=== PATIENT | female | born 1990 | race Caucasian/White ===

== ENCOUNTER 2017-07-12 15:50 | Emergency (ER) | payer SELFPAY ==
[2017-07-12 16:04] VITALS: BP 116/90
--- NOTE | 2017-07-12 17:21 | UC ---
Luis Fernando Sloan Natalie, scribed for Roberto Finn MD on 07/12/17 at 1616 . Respiratory Complaint HPI - HPI Summary HPI Summary: The pt is a 27 y/o F presenting to [facility] c/o respiratory symptoms for a few days. She has right ear ache, cough, wheezing when lying down, and cramping in low abd. The pain is rated 3/10. The pt is in her first , and she will be 26 weeks on 07/14/17. She states that she hasnt felt the baby move since the night of 07/10/17; she usually feels more movement at night rather than in the morning, but hasnt felt anything in over 24 hours. Pt denies vaginal discharge. Her SET O TYPE OPERATOR is Dr. Spaulding, who recommended she come to to check the heartbeat of the baby. She has an appointment tomorrow. She was exposed to people with influenza. - History of Current Complaint Stated Complaint: FLU-SYMPTOMS,25 WEEKS PREG Time Seen by Provider: 07/12/17 15:54 Hx Obtained From: Patient Hx Last Menstrual Period: murena iud - does not cycle ?: Yes - 26 weeks on 07/14/17 Onset/Duration: Lasting Days, Still Present Severity Initially: Mild Severity Currently: Mild Pain Intensity: 3 Pain Scale Used: 0-10 Numeric Character: Cough: Nonproductive Aggravating Factors: Other - lying down Alleviating Factors: Nothing Associated Signs And Symptoms: Positive: Wheezing, Nasal Congestion - Allergies/Home Medications Allergies/Adverse Reactions: Allergies Allergy/AdvReac Type Severity Reaction Status Date / Time MS Amoxicillin [Amoxicillin] Allergy Severe Difficulty Verified 08/25/15 18:49 Breathing MS Cefuroxime [From Ceftin] Allergy Severe Difficulty Verified 08/25/15 18:49 Breathing MS Clavulanic Acid Allergy Severe Difficulty Verified 08/25/15 18:49 [From Augmentin] Breathing MS Penicillins [Penicillins] Allergy Severe Difficulty Verified 08/25/15 18:49 Breathing MS Lorazepam [From Ativan] Allergy Palpitation Verified 08/25/15 18:49 s ENVIRONMENTAL Allergy SNEEZING, Uncoded 08/25/15 18:49 ITCHY EYES Home Medications: Home Medications Ascorbic Acid TAB* [Vitamin C TAB*] 500 mg PO DAILY 07/12/17 [History Confirmed 07/12/17] GuaiFENesin DM* [Robitussin DM*] 5 ml PO Q6H PRN 07/12/17 [History Confirmed 11/22] Metoclopramide TAB* [Reglan TAB*] 10 mg PO Q6H PRN 07/12/17 [History Confirmed 07/12/17] Pnv No.95/Ferrous Fum/Folic AC [ Vitamin & Minera 28-0.8 mg] 1 tab PO [History] Pseudoephedrine HCl [Sudafed 12 Hour] 120 mg PO BID PRN 07/12/17 [History Confirmed 07/12/17] Sertraline* [Zoloft*] 100 mg PO DAILY 07/12/17 [History Confirmed 07/12/17] PMH/Surg Hx/FS Hx/Imm Hx - Surgical History Surgical History: Yes Surgery Procedure, Year, and Place: Tonsillectomy as a child. 2012 LOWER WISDOM TEETH EXTRACTION, OFFICE. cholecystectomy 07/2013 - Family History Known Family History: Negative: Cardiac Disease, Hypertension Family History: Mother: MS. Grandmother: DVT - Social History Alcohol Use: None Substance Use Type: None Substance Use Comment - Amount & Last Used: daily Smoking Status (MU): Former Smoker Type: Cigarettes Amount Used/How Often: 1-1.5 PPD Length of Time of Smoking/Using Tobacco: 4 YEARS Have You Smoked in the Last Year: No When Did the Patient Quit Smoking/Using Tobacco: 2010 Household Exposure Type: Cigarettes Review of Systems Constitutional: Other - decrease in baby movement ENT: Ear Ache - right Respiratory: Cough Gastrointestinal: Abdominal Pain Genitourinary: Other - NEGATIVE: vaginal discharge All Other Systems Reviewed And Are Negative: Yes Physical Exam - Summary Physical Exam Summary: General: mildly ill-appearing, no pain distress Skin: warm, color reflects adequate perfusion, dry Head: normal Eyes: EOMI, SPENSER ENT: normal Neck: supple, nontender Respiratory: CTA, breath sounds present, cough Cardiovascular: RRR Abdomen: soft, nontender Bowel: present Musculoskeletal: normal, strength/ROM intact Neurological: normal, sensory/motor intact, A&O x3 Psychological: affect/mood appropriate Triage Information Reviewed: Yes Vital Signs: Initial Vital Signs Temp 97.0 F 07/12/17 15:54 Pulse 104 07/12/17 15:54 Resp 20 03/07/18 15:54 BP 116/90 07/12/17 15:54 Pulse Ox 99 07/12/17 15:54 Vital Signs Reviewed: Yes UC Diagnostic Evaluation - Laboratory O2 Sat by Pulse Oximetry: 99 Respiratory Course/Dx - Course Course Of Treatment: Medications reviewed. Allergies noted. UNABLE TO FIND HEART TONES IN CLINIC. DUE TO FLU-LIKE ILLNESS AND EXPOSURE TO PERSONS WITH INFLUENZA IN , WILL TREAT WITH TAMIFLU. DISCUSSED WITH DR DANNY PICHARDO OBGYN. SHE RECOMMENDED THE PATIENT GO TO L & D TO EVALUATE FOR HEART TONES. - Differential Dx/Diagnosis Provider Diagnoses: FLU LIKE SYMPTOMS IN . EXPOSURE TO PERSONS WITH INFLUENZA Discharge - Discharge Plan Condition: Stable Disposition: HOME Prescriptions: Oseltamivir CAP* [Tamiflu CAP*] 75 mg PO BID #10 cap Referrals: Elisa Dow MD [Primary Care Provider] - Additional Instructions: GO DIRECTLY TO LABOR AND DELIVERY FOR FURTHER EVALUATION. FOLLOW UP WITH YOUR OBGYN. TAKE THE TAMIFLU FOR YOUR FLU-LIKE ILLNESS AND EXPOSURE TO PEOPLE WITH INFLUENZA. GO TO THE EMERGENCY DEPARTMENT FOR ANY WORSENING OF YOUR CONDITION OR QUESTIONS OR CONCERNS. YOUR BLOOD PRESSURE WAS ELEVATED TODAY; FOLLOW UP WITH YOUR PRIMARY CARE DOCTOR WITHIN ONE WEEK. The documentation as recorded by the Luis Fernando jones Natalie accurately reflects the service I personally performed and the decisions made by me, Roberto Finn MD.
== END 2017-07-12 17:19 | disposition home or self-care (01) ==
LOC: UCEAST 15:50
DX: O26.892 Other specified pregnancy related conditions, second trimester (principal); J11.1 Influenza due to unidentified influenza virus with other respiratory manifestations; Z3A.26 26 weeks gestation of pregnancy; Z20.828 Contact with and (suspected) exposure to other viral communicable diseases; Z88.1 Allergy status to other antibiotic agents; Z88.0 Allergy status to penicillin; Z88.8 Allergy status to other drugs, medicaments and biological substances; Z87.891 Personal history of nicotine dependence
CPT/HCPCS: 87502; 99212; G0463

== ENCOUNTER 2018-02-13 06:30 | Day surgery (SDC) | payer OTHER ==
--- NOTE | 2018-01-30 07:36 | HP ---
PREOPERATIVE HISTORY AND PHYSICAL: DATE OF ADMISSION/SURGERY: 02/13/18 DATE OF OFFICE VISIT/ENCOUNTER: 01/29/18 ATTENDING SURGEON: Demi Castellano MD * (DICTATED BY HILLARY CANO) PROCEDURE: Right wrist carpal tunnel release. CHIEF COMPLAINT: Numbness and tingling, right hand. HISTORY OF PRESENT ILLNESS: This is a 27-year-old female, who complains of numbness and tingling in her right hand that has been present for 7 months and it is gradually getting worse. She had it during her and it was very bad, and it just never went away after she delivered the baby. She has used braces for treatment, but no other treatment. This is her dominant hand. She denies any injury to this hand. She is interested in pursuing surgical intervention at this time in the form of a right wrist carpal tunnel release. PAST MEDICAL HISTORY: 1. Arthritis. 2. Tourette's syndrome, which causes her to cough. 3. Gastroparesis. 4. Anxiety/depression. PAST SURGICAL HISTORY: 1. followed by healing complications, well-healed now. 2. Cholecystectomy. 3. Tonsillectomy. No known anesthesia problems with surgeries. CURRENT MEDICATIONS: 1. Ibuprofen 200 mg p.r.n. 2. Lansoprazole 15 mg daily. 3. Zoloft 150 mg daily. ALLERGIES: AMOXICILLIN, AUGMENTIN, and PENICILLIN cause hives and throat swelling. FAMILY MEDICAL HISTORY: Diabetes, hypertension, stroke, and cancer. SOCIAL HISTORY: The patient is employed at [employer]. She quit smoking approximately 10 years ago, prior to that she smoked a pack per day for 5 years. She denies recreational drug use and does not drink alcohol. REVIEW OF SYSTEMS: Negative for general, cephalic, cardiovascular, respiratory , GI, , other musculoskeletal, integumentary, endocrine, neurologic, and hematologic symptoms. Infectious disease is negative for MRSA, hepatitis C, and HIV. PHYSICAL EXAMINATION GENERAL: A well-developed, well-nourished, 27-year-old female, in no acute distress. VITAL SIGNS: Height 5 feet 3 inches, weight 335 pounds, pulse rate 64, blood pressure 140/72. HEENT: Normocephalic, atraumatic. Pupils are equal, round, and reactive to light and accommodation. Extraocular movements are intact. Throat is clear. NECK: Supple. No palpable lymph nodes. PULMONARY: Lungs are clear to auscultation bilaterally. No wheezes, rales, or rhonchi. CARDIOVASCULAR: Regular rate and rhythm. S1 and S2. No murmurs, rubs or gallops. No edema. ABDOMEN: Positive bowel sounds. Soft, nontender. MUSCULOSKELETAL: On exam of the right hand, there is no thenar wasting, but she does have weakness with thumb abduction. There is no visible swelling. She has normal sensation to light touch in the median nerve distribution. She has full flexion and extension of the fingers. Positive median nerve compression test, negative Tinel's sign at the ulnar nerve at the elbow, negative Phalen's test. NEUROLOGICAL: Alert and oriented x3. Cranial nerves II through XII are intact. IMPRESSION: Right carpal tunnel syndrome. PLAN: The patient is scheduled to undergo a right wrist carpal tunnel release with Dr. Castellano on 02/13/18. She will follow up 10 days postop for followup and suture removal. A prescription for Tylenol No. 3 was e-scribed to the patient' s pharmacy for postoperative pain management. HILLARY CANO [id number]/SANDRINE #: [id number] CARLY
[~2018-02-13 06:30] MED LIST: Buffered Lidocaine 0.9% SYRIN* 5 ML/SYR SYRINGE INTRADERM ONE; Famotidine IV* 10 MG/ML 2 ML (20 mg) IV ONE
[2018-02-13] MEDS ORDERED: Famotidine IV* 10 MG/ML 2 ML (20 mg) ONE (06:41)
[2018-02-13] MEDS ORDERED: Buffered Lidocaine 0.9% SYRIN* 5 ML/SYR SYRINGE ONE (06:41)
[2018-02-13] MEDS ORDERED: Lidocaine 1% INJ* 10 MG/ML 30 ML SDV ONE (07:08)
[2018-02-13] MEDS ORDERED: fentaNYL* 50 MCG/ML 2 ML VIAL (100 MCG VIAL) ONE (07:29)
[2018-02-13] MEDS ORDERED: Midazolam* 1 MG/ML 5 ML VIAL (5 MG) ONE (07:29)
[2018-02-13] MEDS ORDERED: DiMENhydriNATE IV* 50 MG/ML VIAL ONE (07:30)
[2018-02-13] MEDS ORDERED: Ondansetron INJ* 2 MG/ML VIAL ONE (07:30)
[2018-02-13] MEDS ORDERED: Ketorolac INJ* 30 MG/ML 1 ML VIAL ONE (07:30)
[2018-02-13] MEDS ORDERED: Propofol* 10 MG/ML 20 ML BTL IV PUSH ONE (07:30)
[2018-02-13] MEDS ORDERED: Acetaminophen TAB* 325 MG PO PRN (08:00)
[2018-02-13] MEDS ORDERED: DiMENhydriNATE IV* 50 MG/ML VIAL IV PUSH PRN (08:00)
[2018-02-13] MEDS ORDERED: Naloxone* 0.4 MG/ML 1 ML VIAL IV PRN (08:00)
[2018-02-13 08:20] VITALS: BP 108/67
[2018-02-13] MEDS ORDERED: Morphine VIAL* 10 MG/ML 1 ML VIAL ONE (09:15)
--- NOTE | 2018-02-13 11:16 | OP ---
CC: Demi Castellano MD OPERATIVE REPORT: DATE OF OPERATION: 02/13/18 DATE OF : 86 SURGEON: Demi Castellano MD SENIOR MOBILE DEVELOPER: HILLARY Basilio ANESTHESIA: Local MAC. PRE-OP DIAGNOSIS: Right carpal tunnel syndrome. POST-OP DIAGNOSIS: Right carpal tunnel syndrome. OPERATIVE PROCEDURE: Right carpal tunnel release. ESTIMATED BLOOD LOSS: Zero. TOURNIQUET TIME: Approximately 10 minutes. INDICATIONS FOR PROCEDURE: Cristin is a 27-year-old female with numbness and tingling in the median n erve distribution of her right hand. She presents for right carpal tunnel release. DESCRIPTION OF PROCEDURE: The patient was brought to the operating room, was given a sedation anesth etic and a local infiltration of 10 cc of 1% plain lidocaine in the palm of her right hand. The skin of her right hand forearm was prepped and draped in the usual sterile fashion. The hand and forearm were exsanguinated and the tourniquet elevated to 250 mmHg. A longitudinal incision was made at the palm in line with the ring finger. We dissected sharply through the subcutaneous tissue down to the transverse carpal ligament. The ligament was divided sharply with a knife and then more proximally with the scissors. The nerve was dissected free from the surrounding tissue and there was an area of moderate compression along the entire length of the ligament. The wound was irrigated and the skin edges reapproximated with 4-0 nylon suture. The wound was dressed with Xeroform, 4x4, Webril and an Phillip wrap. The patient tolerated the procedure, was brought to the recovery room in good condition. [id number]/[facility] #: [id number]
== END 2018-02-13 08:36 | disposition home or self-care (01) ==
LOC: OR 06:30
PROVIDERS: ATTEND Orthopaedic Surgery
DX: G56.01 Carpal tunnel syndrome, right upper limb (principal); F41.8 Other specified anxiety disorders; M19.90 Unspecified osteoarthritis, unspecified site; I10 Essential (primary) hypertension; Z87.891 Personal history of nicotine dependence; K31.84 Gastroparesis; E66.01 Morbid (severe) obesity due to excess calories
CPT/HCPCS: 81025; J1240; J1885; J2250; J2270; J2405; J2704; J3010

== ENCOUNTER 2023-12-19 09:45 | Observation (INO) ==
[2023-12-19] MEDS: Acetaminophen IV 1 GM/100ML 1,000 MG/100 ML BAG IV ONE (10:05)
[2023-12-19] MEDS: Ondansetron 4 mg VIAL 2 MG/ML 2 ml VIAL IV ONE (10:06)
[2023-12-19 10:17] LABS: ABS Basophils 0.2 10^3/uL (0.0-0.1); ABS Lymphocytes 1.4 10^3/uL (1.0-4.8); ABS Monocytes 1.1 10^3/uL (0.0-0.9); ABS Neutrophils 15.9 10^3/uL (1.5-7.6); ABS Nucleated RBC 0.01 10^3/ul; Hematocrit 43.6 % (35-45); Hemoglobin 14.6 g/dL (11.5-14.3); Lymphocyte % 7.5 %; Mean Corpuscular Hemoglobin 29.8 pg (27-33); Mean Corpuscular Hgb Conc 33.3 g/dL (31-36); Mean Corpuscular Volume 89.3 fL (80-97); Mean Platelet Volume 8.6 fL (7.5-11.2); Nucleated Red Blood Cells % 0.1 %/100WBC (0.0-0.8); Platelet Count 288 10^3/uL (150-450); Red Blood Count 4.89 10^6/uL (3.63-4.92); White Blood Count 18.6 10^3/uL (3.8-11.8)
[2023-12-19 11:09] LABS: HCG Pregnancy < 0.60 mIU/mL
[2023-12-19 11:51] LABS: Erythrocyte Sed Rate 31 mm/Hr (0-20)
[2023-12-19 13:31] LABS: Anion Gap 12 mmol/L (2-16); Blood Urea Nitrogen 15 mg/dL (6-24); CO2 Carbon Dioxide 23 mmol/L (22-32); Chloride 104 mmol/L (101-111); Creatinine, Serum 0.62 mg/dL (0.51-0.95); Glucose 114 mg/dL (70-100); Potassium 4.5 mmol/L (3.5-5.0); Sodium 139 mmol/L (135-145)
[2023-12-19 13:32] LABS: ALT 15 U/L (7-52); AST 12 U/L (13-39); Albumin 3.9 g/dL (3.2-5.2); Albumin/Globulin Ratio 1.3 (1-3); Alkaline Phosphatase 101 U/L (35-149); C Reactive Protein 16.11 mg/L (<8.01); Globulin 2.9 g/dL (2-4); Total Bilirubin 0.3 mg/dL (0.2-1.0); Total Protein 6.8 g/dL (6.4-8.9)
[2023-12-19] MEDS ORDERED: Morphine 2 MG/ML SYRINGE IV PRN (15:25)
[2023-12-19] MEDS: Enoxaparin 40 MG/0.4 ML SYR SUBCUT SCH (16:53)
[2023-12-19] MEDS: Nicotine PATCH 14 MG/24 HR PATCH TRANSDERM SCH (18:16)
[2023-12-20 06:42] LABS: Potassium 4.6 mmol/L (3.5-5.0)
[2023-12-20 06:43] LABS: Calcium 8.5 mg/dL (8.6-10.3); Creatinine, Serum 0.66 mg/dL (0.51-0.95); eGFR CKD-EPI 117.2 (>60)
[2023-12-20 07:15] LABS: Hematocrit 41.9 % (35-45); Hemoglobin 13.9 g/dL (11.5-14.3); Mean Corpuscular Hemoglobin 30.6 pg (27-33); Mean Corpuscular Hgb Conc 33.2 g/dL (31-36); Mean Corpuscular Volume 92.2 fL (80-97); Mean Platelet Volume 9.4 fL (7.5-11.2); Platelet Count 172 10^3/uL (150-450); Red Blood Count 4.54 10^6/uL (3.63-4.92); Red Cell Distribution Width 15.1 % (12-17); White Blood Count 9.4 10^3/uL (3.8-11.8)
[2023-12-20 14:21] VITALS: BP 121/78
== END 2023-12-20 17:25 | disposition home or self-care (01) ==
LOC: EDHOLD 09:45 → ED 09:45 → SUATTDRO 15:08 → MED 15:52
PROVIDERS: ADMIT Internal Medicine; ATTEND Internal Medicine